=== PATIENT | female | born 1955 | race Caucasian/White ===

== ENCOUNTER → 2017-11-11 | Outpatient (CLI) | payer MEDICAID | LOC: FIMAGING 15:12 | PROVIDERS: ATTEND Family Medicine Sports Medicine | DX: M25.561 Pain in right knee (principal); M25.562 Pain in left knee ==

== ENCOUNTER → 2018-09-01 | Outpatient (CLI) | payer MEDICAID | LOC: FIMAGING 10:42 | PROVIDERS: ATTEND Family Medicine | DX: M25.462 Effusion, left knee (principal) ==

== ENCOUNTER → 2018-10-27 | Outpatient (CLI) | payer MEDICAID | LOC: FIMAGING 18:40 | PROVIDERS: ATTEND Family Medicine | DX: S83.232A Complex tear of medial meniscus, current injury, left knee, initial encounter (principal); S83.282A Other tear of lateral meniscus, current injury, left knee, initial encounter; S83.512A Sprain of anterior cruciate ligament of left knee, initial encounter; M25.462 Effusion, left knee ==

== ENCOUNTER 2019-01-19 20:59 | Emergency (ER) | payer MEDICAID ==
--- NOTE | 2019-01-19 21:59 | EDPHY ---
H & P Stated Complaint: left ACL surgery 01/13/19, pain and swelling in calf started today Time Seen by Provider: 01/19/19 21:59 HPI/ROS: HPI CHIEF COMPLAINT: Left leg pain, swelling, bruising HISTORY OF PRESENT ILLNESS: 63-year-old female, otherwise healthy presents emergency room with left leg swelling, bruising down her left anterior tib-fib, she just had meniscal surgery in ACL repair on the 13 of January. On Thursday she started going to physical therapy in using it rather aggressively. She no some increasing swelling discomfort. Decided come the emergency room to make sure she does not have a DVT. Denies any chest pain or shortness of breath, denies fever. Denies extreme pain. Denies focal numbness or tingling. Past Medical History: Denies significant medical history Past Surgical History: Recent ACL and meniscal repair on January 13. Social History: Denies drugs alcohol tobacco. Family History: Noncontributory ROS REVIEW OF SYSTEMS: 10 Systems were reviewed and negative with the exception of the elements mentioned in the history of present illness. Exam Constitutional triage nursing summary reviewed, vital signs reviewed, awake/ alert. Eyes normal conjunctivae and sclera, EOMI, PERRLA. HENT normal inspection, atraumatic, moist mucus membranes, no epistaxis, neck supple/ no meningismus, no raccoon eyes. Respiratory clear to auscultation bilaterally, normal breath sounds, no respiratory distress, no wheezing. Cardiovascular rate normal, regular rhythm, no murmur, no edema, distal pulses normal. Gastrointestinal soft, non-tender, no rebound, no guarding, normal bowel sounds, no distension, no pulsatile mass. Genitourinary no CVA tenderness. Musculoskeletal left lower extremity: Good distal pulse, good cap refill, warm extremity, ecchymosis down the anterior tibia with some mild edema, laparoscopic sites over the knee anteriorly appear clean, dry and intact. No signs of infection, no significant redness or pus. No compartment syndrome no midline vertebral tenderness, full range of motion, no calf swelling, no tenderness of extremities, no meningismus, good pulses, neurovascularly intact. Skin pink, warm, & dry, no rash, skin atraumatic. Neurologic awake, alert and oriented x 3, AAOx3, moves all 4 extremities equally, motor intact, sensory intact, CN II-XII intact, normal cerebellar, normal vision, normal speech. Psychiatric normal mood/affect. Heme/Lymph/Immune no lymphadenopathy. Differential Diagnosis: Includes but is not limited to in a particular order postoperative pain, postoperative edema DVT Medical Decision Making: Plan for this patient ultrasound Doppler of the left lower extremity. Re-evaluate Re-evaluation: Ultrasound shows no evidence of DVT. Small Lee cyst behind left knee. Image interpreted by Dr. Alves. Updated patient 2312 that she has no DVT. Recommend cool compresses, elevation , and return precautions. Discussed at length with the patient. She understands comfortable this plan Source: Patient - Personal History Current Tetanus/Diphtheria Vaccine: No Current Tetanus Diphtheria and Acellular Pertussis (TDAP): No - Medical/Surgical History Hx Asthma: No Hx Chronic Respiratory Disease: No Hx Diabetes: No Hx Cardiac Disease: No Hx Renal Disease: No Hx Cirrhosis: No Hx Alcoholism: No Hx HIV/AIDS: No Hx Splenectomy or Spleen Trauma: No Other PMH: left ACL surgery 01/13/19, rectum cancer - Social History Smoking Status: Never smoked Constitutional: Initial Vital Signs Temperature (C) 37.0 C 01/19/19 21:17 Heart Rate 74 01/19/19 21:17 Respiratory Rate 16 01/19/19 21:17 Blood Pressure 122/81 H 01/19/19 21:17 O2 Sat (%) 99 01/19/19 21:17 O2 Delivery Mode Room Air Allergies/Adverse Reactions: heparin Allergy (Verified 01/19/19 21:21) Home Medications: Medication Instructions Recorded Levothyroxine 01/19/19 Percocet 10-325 mg Tablet 01/19/19 Sulfamethoxazole/Trimethoprim 01/19/19 Zofran Odt 4 mg (*) 01/19/19 Medical Decision Making - Diagnostics Imaging Results: Imaging Impressions Extremity Venous Study 01/19/19 22:02 Impression: No deep venous thrombosis left leg. Results called and discussed with Franky Angel MD at 01/19/2019 22:55. Departure - Departure Disposition: Home, Routine, Self-Care Clinical Impression: Leg edema, left Condition: Good Instructions: Edema (ED), Bakers Cyst (ED) Additional Instructions: 1. Keep your leg elevated. 2. Ice your knee. 3. Compression stockings 4. Follow up with her physical therapist and Doctor 5. Return to the emergency room if worsening symptoms Referrals: Ron Beckman MD [Primary Care Provider] - As per Instructions
[2019-01-19 23:43] VITALS: BP 129/85
== END 2019-01-19 23:45 | disposition home or self-care (01) ==
DX: R60.0 Localized edema (principal); M71.22 Synovial cyst of popliteal space [Baker], left knee; Z98.890 Other specified postprocedural states